=== PATIENT | female | born 1970 | race Hispanic/Latino ===

== ENCOUNTER 2020-01-09 09:22 | Emergency (ER) | payer SELFPAY ==
[2020-01-09] MEDS ORDERED: TRAMADOL HCL 50 MG TABLET ONE (10:32)
== END 2020-01-09 10:49 | disposition home or self-care (01) ==
LOC: EDH 09:22
DX: M70.62 Trochanteric bursitis, left hip (principal); I10 Essential (primary) hypertension; Y93.01 Activity, walking, marching and hiking
CPT/HCPCS: 73502

== ENCOUNTER 2024-07-05 10:42 | Emergency (ER) | payer SELFPAY ==
[~2024-07-05] VITALS: Ht 152.4 cm; Wt 61.2 kg
[2024-07-05 12:28] LABS: BASOPHILS # (AUTO) 0.04 K/uL (0.00-0.20); BASOPHILS % (AUTO) 0.4 % (0.0-5.0); EOSINOPHILS # (AUTO) 0.21 K/uL (0.00-0.70); EOSINOPHILS % (AUTO) 1.9 % (0.0-8.0); IMMATURE GRANULOCYTE ABSOLUTE 0.04 K/uL (0-1); LYMPHOCYTES # (AUTO) 1.6 K/uL (1.0-4.8); LYMPHOCYTES % (AUTO) 14.6 % (21.0-51.0); MEAN CORPUSCULAR HEMOGLOBIN 29.3 pg (27.0-33.0); MEAN CORPUSCULAR HGB CONC 33.7 g/dL (32.0-36.0); MONOCYTES # (AUTO) 0.8 K/uL (0.1-1.0); MONOCYTES % (AUTO) 6.8 % (3.0-13.0); NEUTROPHILS # (AUTO) 8.5 K/uL (1.8-7.7); NEUTROPHILS % (AUTO) 75.9 % (40.0-77.0); PLATELET COUNT (AUTO) 389 K/uL (130-400); RED BLOOD CELL COUNT(AUTO) 4.71 MIL/uL (4.00-5.50); WHITE BLOOD COUNT (AUTO) 11.2 K/uL (4.8-10.8)
--- NOTE | 2024-07-05 12:36 | ERN ---
General Chief Complaint: Lower Extremity Pain/Injury Stated Complaint: SWOLLEN LEFT LEG Time Seen by MD: 10:45 Time Seen by Midlevel: 10:45 Source: patient History of Present Illness Initial Comments Patient is a 53-year-old female with a past medical history of hypertension presenting to the emergency department with bilateral leg swelling. Patient states the swelling to her left leg is worse in the right. The swelling to the left leg is towards the ankle area. She also reports swelling to the right leg but only states it is underneath her knee. Denies any calf swelling or tenderness. Allergies: Coded Allergies: No Known Drug Allergies (Unverified Allergy, Unknown, 01/09/20) Past Medical History Past Medical History: No Pertinent History Past Surgical History: None ROS Dictation Constitutional: Negative for fever,chills, and weight loss Eyes: Negative for injury, pain,redness, and discharge ENT: Negative for injury,pain or swelling Cardiovascular: Negative for chest pain, palpitations, and edema Respiratory: Negative for shortness of breath, cough, and wheezing, Abdomen/GI: Negative for abdominal pain, nausea, vomiting, diarrhea, and constipation Back: Negative for injury and pain : Negative for injury, bleeding and discharge MS/Extremity: Left lower extremity swelling Negative for injury and deformity Skin: Negative for rash, and discoloration Neuro: Negative for headache, weakness, numbness, tingling, and seizure Psych: Negative for suicide ideation, homicidal ideation, and hallucinations Physical Exam Physical Exam Dictation General: awake, alert, NAD Head/Face: Normocephalic, atraumatic Eyes: PERRL, EOMI, vision at baseline ENT: oral cavity clear, TMs clear, no signs of infection Neck: Trachea midline, supple, no nuchal rigidity Cardiovascular: RRR, normal S1/S2, No MRGs, no JVD Respiratory: CTAB, no respiratory distress, No rales or wheezes Abdomen: Soft, non-tender, non-distended, normal bowel sounds, no guarding or rebound. Skin: Warm, dry, normal turgor, no rash MS/Extremity: Pulses equal, no cyanosis, neurovascular intact, FROM Neuro: COAx4, GCS 15, strength 5/5, CN 2-12 intact, normal cerebellar exam, normal gait, Psych: Normal behavior, mood, and affect normal Results Laboratory and Microbiology Lab and Micro Result Laboratory Tests Test 07/05/24 12:11 White Blood Count 11.2 K/uL (4.8-10.8) H Red Blood Count 4.71 MIL/uL (4.00-5.50) Hemoglobin 13.8 g/dL (12.0-16.0) Hematocrit 41.0 % (36-48) Mean Corpuscular Volume 87.0 fL (79-99) Mean Corpuscular Hemoglobin 29.3 pg (27.0-33.0) Mean Corpuscular Hemoglobin Concent 33.7 g/dL (32.0-36.0) Red Cell Distribution Width 13.0 % (11.0-15.5) Platelet Count 389 K/uL (130-400) Mean Platelet Volume 9.4 fL (7.5-10.5) Immature Granulocyte % (Auto) 0.4 % (0-1) Neutrophils (%) (Auto) 75.9 % (40.0-77.0) Lymphocytes (%) (Auto) 14.6 % (21.0-51.0) L Monocytes (%) (Auto) 6.8 % (3.0-13.0) Eosinophils (%) (Auto) 1.9 % (0.0-8.0) Basophils (%) (Auto) 0.4 % (0.0-5.0) Neutrophils # (Auto) 8.5 K/uL (1.8-7.7) H Lymphocytes # (Auto) 1.6 K/uL (1.0-4.8) Monocytes # (Auto) 0.8 K/uL (0.1-1.0) Eosinophils # (Auto) 0.21 K/uL (0.00-0.70) Basophils # (Auto) 0.04 K/uL (0.00-0.20) Absolute Immature Granulocyte (auto 0.04 K/uL (0-1) Nucleated Red Blood Cells 0.0 % (0.0-0.19) Sodium Level 142 mmol/L (136-145) Potassium Level 3.7 mmol/L (3.5-5.1) Chloride Level 104 mmol/L (101-111) Carbon Dioxide Level 27 mmol/L (21-32) Blood Urea Nitrogen 14 mg/dL (7-18) Creatinine 0.6 mg/dL (0.5-1.0) Glomerular Filtration Rate Calc 106 mL/min (>90) Random Glucose 122 mg/dL (70-105) H Total Calcium 9.3 mg/dL (8.5-10.1) B-Type Natriuretic Peptide < 5 pg/mL (0-100) Labs Reviewed?: Yes MDM MDM: Patient is a 53-year-old female with a past medical history of hypertension presenting to the emergency department with bilateral leg swelling. Patient states the swelling to her left leg is worse in the right. The swelling to the left leg is towards the ankle area. She also reports swelling to the right leg but only states it is underneath her knee. Denies any calf swelling or tenderness. On physical examination patient is ambulatory without assistance. She was negative Homans sign. She has localized swelling to the upper portion of the right leg just believes the knee it appears to be the collection of fat. Her left lower extremity does not show any obvious signs of swelling or tenderness. She was good distal pulses. This appears to be a circulation issue however I obtained basic labs that include a BNP. Her blood work is unremarkable. There was no evidence of an acute kidney injury. BNP is normal. Patient will be discharged home she will need to follow up with your PCP for further evaluation. Differential diagnosis: Lower extremity swelling, heart failure, MIGUEL Previous outside records reviewed: Old ER visits. Need for hospitalization: Patient does not meet criteria for hospitalization. Need for emergency major/minor surgery: No Patient's prior external medical records from other ER visits were reviewed by me as indicated. Prior testing and results from previous visits were reviewed. Prior tests were taken into account with medical decision making and resource utilization, independent historian/historians were used to obtain complete medical history. I independently interpreted the test that were performed, results were reviewed by me and considered findings on radiology if ordered. Medical management and examination interpretation discussions were had by me with other qualified healthcare professionals as indicated for the patient's care. ED Course Orders Procedure Category Date Status Time Cbc With Differential LAB 07/05/24 Complete 11:38 Basic Metabolic Panel LAB 07/05/24 Complete 11:38 B-Type Natriuretic LAB 07/05/24 Complete Peptide 11:38 Vital Signs Date Time Temp Pulse Resp B/P (MAP) Pulse Ox O2 Delivery O2 Flow Rate FiO2 07/05/24 11:23 97.5 86 16 147/88 100 Room Air 0 DX & DISP Disposition: Discharge Departure Impression: Primary Impression: Leg swelling Condition: Stable Additional Instructions: Your blood work today is unremarkable. Your kidney function is normal. It appears the swelling from your legs his related to circulation. You may need to wear compression stockings. You will need to follow up with your primary care doctor in 2-3 days for further testing. Return to the ER for any new or worsening symptoms Referrals: SELF,REFERRAL (PCP) I have reviewed, & agreed with my scribe's, documentation. (Entered by Abby Ugarte, acting as a scribe for MARC Norris) I have reviewed the case, and I agree with, Diagnosis and Plan I performed the substantive portion of the visit. I have reviewed and personally made and approve the management plan that is documented in the note by myself or the JOCY. I acknowledge for responsibility for the patient's management plan. I personally scribed for VALERIE NORRIS ([facility]) on 07/05/24 at 12:35. Electronically submitted by Abby Ugarte ([email or web address]). VALERIE NORRIS Jul 05, 2024 12:35
[2024-07-05 12:48] LABS: CREATININE 0.6 mg/dL (0.5-1.0); POTASSIUM 3.7 mmol/L (3.5-5.1)
[2024-07-05 13:08] LABS: B-TYPE NATRIURETIC PEPTIDE < 5 pg/mL (0-100)
--- NOTE | 2024-07-05 13:40 | NUR ---
BROUGHT IN TO [facility] FOR DISCHARGE INSTRUCTIONS AND ASSESMENT AT THIS TIME
[2024-07-05 13:41] VITALS: BP 129/94; PULSE 90; RESP 20; TEMP 98.1; O2SAT 97
== END 2024-07-05 13:44 | disposition home or self-care (01) ==
LOC: EDH 10:42
DX: M79.89 Other specified soft tissue disorders (principal); I10 Essential (primary) hypertension
CPT/HCPCS: 36415; 80048; 83880; 85025; 99283